=== PATIENT | female | born 1995 | race Caucasian/White ===

== ENCOUNTER → 2022-09-15 | Outpatient (CLI) | payer OTHER, SELFPAY ==
[2022-09-17 00:07] LABS: Chlamydia By Nucleic Acid AMP Negative (Negative)
[2022-09-17 12:22] LABS: Gonococcus By Nucleic Acid AMP Negative (Negative)
== END | disposition home or self-care (01) ==
LOC: LABSPEC 10:55
PROVIDERS: Visit Provider Obstetrics & Gynecology
DX: Z34.90 Encounter for supervision of normal pregnancy, unspecified, unspecified trimester (principal)
CPT/HCPCS: 87086; 87491; 87591

== ENCOUNTER → 2022-09-26 | Outpatient (CLI) | payer OTHER, SELFPAY ==
[2022-09-26 11:17] LABS: Absolute Lymphocyte Count 1.24 X10^3/uL (0.83-4.51); Absolute Neutrophil Count 5.5 X10^3/uL (2.0-7.7); Basophil# 0.04 X10^3/uL; Basophil% 0.5 % (0-1); Eosinophil# 0.05 X10^3/uL; Eosinophils% 0.7 % (0-5); Hematocrit 39.1 % (37-47); Hemoglobin 13.4 g/dL (12.0-15.0); Lymphocyte # 1.24 X10^3/ul (0.83-4.51); Lymphocyte % 16.8 % (19-41); Mean Corp Hgb Conc 34.3 g/dL (32-36); Mean Corpuscular Hgb 29.4 pg (27.0-32.0); Mean Corpuscular Volume 85.7 fL (81-99); Mean Platelet Vol. 9.2 fl (6.2-12.0); Monocyte# 0.55 X10^3/uL; Monocyte% 7.5 % (0-10); NRBC Flagged by Analyzer 0 % (0-5); Neutrophil # 5.47 X10^3/uL (2.7-7.7); Neutrophil % 74.2 % (47-70); Platelet Count 198 K/mm3 (150-450); RBC Distribution Width CV 12.2 % (11.6-14.6); RBC Distribution Width SD 37.9 fl (35.1-43.9); Red Blood Count 4.56 M/mm3 (4.2-5.4); White Blood Count 7.4 K/mm3 (4.4-11.0)
[2022-09-26 12:10] LABS: NATERA MAILED SPECIMEN
[2022-09-26 12:40] LABS: HIV - WCH Non-Reactive (Nonreactive); Hepatitis B Surface Antigen Non-Reactive (Nonreactive); Hepatitis C Antibody Non-Reactive (Nonreactive); Rubella IgG Reactive (Nonreactive); Syphilis Antibodies Non-reactive
== END | disposition home or self-care (01) ==
LOC: PAVLAB 10:56
PROVIDERS: Referring Provider Obstetrics & Gynecology; Visit Provider Obstetrics & Gynecology
DX: Z34.90 Encounter for supervision of normal pregnancy, unspecified, unspecified trimester (principal)
CPT/HCPCS: 36415; 85025; 86703; 86762; 86780; 86803; 86850; 86900; 86901; 87340

== ENCOUNTER → 2022-10-19 | Outpatient (CLI) | payer OTHER, SELFPAY ==
[2022-10-19 13:54] VITALS: BP 116/78; PULSE 97; RESP 16; TEMP 36.4; O2SAT 100; BMI 20.5
[2022-10-19] MEDS: Ondansetron 4 MG/2 ML Vial IV (14:02)
[2022-10-19] MEDS: Dextrose 5%-Lactated Ringers 1,000 ML 999 ML IV (14:02)
[2022-10-19] MEDS: 0.9% NaCl Peripheral Flush Adult/Peds IV (14:02)
[2022-10-19 15:22] VITALS: BP 110/69; PULSE 96; RESP 16; TEMP 37.5; O2SAT 100
== END | disposition home or self-care (01) ==
PROVIDERS: Referring Provider Nurse Practitioner Women's Health; Visit Provider Nurse Practitioner Women's Health
DX: E86.0 Dehydration (principal)
CPT/HCPCS: 96374; 96361; A4216; J2405

== ENCOUNTER → 2023-01-11 | Outpatient (CLI) | payer OTHER, SELFPAY ==
[2023-01-11 11:42] LABS: Absolute Lymphocyte Count 1.18 X10^3/uL (0.83-4.51); Absolute Neutrophil Count 5.3 X10^3/uL (2.0-7.7); Basophil# 0.03 X10^3/uL; Basophil% 0.4 % (0-1); Eosinophil# 0.05 X10^3/uL; Eosinophils% 0.7 % (0-5); Hematocrit 35.3 % (37-47); Hemoglobin 12.1 g/dL (12.0-15.0); Lymphocyte # 1.18 X10^3/ul (0.83-4.51); Lymphocyte % 16.5 % (19-41); Mean Corp Hgb Conc 34.3 g/dL (32-36); Mean Corpuscular Hgb 30.6 pg (27.0-32.0); Mean Corpuscular Volume 89.4 fL (81-99); Mean Platelet Vol. 9.7 fl (6.2-12.0); Monocyte# 0.53 X10^3/uL; Monocyte% 7.4 % (0-10); NRBC Flagged by Analyzer 0 % (0-5); Neutrophil # 5.31 X10^3/uL (2.7-7.7); Neutrophil % 74.6 % (47-70); Platelet Count 193 K/mm3 (150-450); RBC Distribution Width SD 42.5 fl (35.1-43.9); Red Blood Count 3.95 M/mm3 (4.2-5.4); White Blood Count 7.1 K/mm3 (4.4-11.0)
[2023-01-11 12:16] LABS: Glucose Challenge Gest 1H 50g 82 mg/dL (70-140)
[2023-01-11 12:47] LABS: HIV - WCH Non-Reactive (Nonreactive); Syphilis Antibodies Non-reactive
== END | disposition home or self-care (01) ==
PROVIDERS: Referring Provider Registered Nurse; Visit Provider Registered Nurse
DX: O09.90 Supervision of high risk pregnancy, unspecified, unspecified trimester (principal); Z13.1 Encounter for screening for diabetes mellitus
CPT/HCPCS: 36415; 82950; 85025; 86703; 86780

== ENCOUNTER 2023-04-23 12:57 | Inpatient (IN) | payer OTHER, MEDICAID, SELFPAY ==
[2023-04-23] VITALS (15 sets, daily range): BP systolic 111–137; BP diastolic 66–90; PULSE 81–97; RESP 16–18; TEMP 36.2–37.2; O2SAT 100; BMI 26.3
[2023-04-23] MEDS: Lactated Ringers 1,000 ML 999 ML IV (15:13)
[2023-04-23 15:20] LABS: Absolute Lymphocyte Count 1.22 X10^3/uL (0.83-4.51); Absolute Neutrophil Count 6.4 X10^3/uL (2.0-7.7); Basophil# 0.02 X10^3/uL; Basophil% 0.2 % (0-1); Hematocrit 35.7 % (37-47); Hemoglobin 11.5 g/dL (12.0-15.0); Lymphocyte # 1.22 X10^3/ul (0.83-4.51); Mean Corp Hgb Conc 32.2 g/dL (32-36); Mean Corpuscular Hgb 26.7 pg (27.0-32.0); Mean Platelet Vol. 11.1 fl (6.2-12.0); Monocyte# 0.47 X10^3/uL; Monocyte% 5.8 % (0-10); NRBC Flagged by Analyzer 0 % (0-5); Neutrophil % 78.6 % (47-70); POSITIVE COUNT YES; Platelet Count 194 K/mm3 (150-450); RBC Distribution Width CV 13.4 % (11.6-14.6); RBC Distribution Width SD 40.4 fl (35.1-43.9); White Blood Count 8.1 K/mm3 (4.4-11.0)
[2023-04-23 15:31] LABS: Differential Indicated SCAN CRITERIA MET
[2023-04-23] MEDS: Acetaminophen 500 MG Tablet 1000 MG PO ×2 (15:58→21:51)
[2023-04-23] MEDS: Sodium Citrate/Citric Acid 30 ML UDC PO (16:00)
--- NOTE | 2023-04-23 16:01 | HP.PCM.OB_ITS ---
HPI - General General Date of Admission: 04/23/23 HPI Narrative JORDEN JARA, is a 27 F at 40.1 weeks presents complaining of menstrual- like cramping and swelling of the hands. Upon admission blood pressure overall reassuring she did have 1 elevated at 145/95. She denies any headaches or visual changes. Patient was originally scheduled for labor induction at 41 weeks upon discussion with the patient and review of her medical records and assessment last growth ultrasound demonstrated LGA 96 percentile with abdominal circumference >99% and BPD >99%. Patient previously counseled in the office about estimated weight. After discussion with the patient patient would like to proceed with elective primary section. Patient was counseled extensively about risk benefits and alternatives. Patient understands that ultrasound can be off and estimated weight either up or down. She understands that the estimated weight may not be at 5000 g. [facility] Medical History History of HPV infection Hx of abnormal cervical Pap smear Home Medications vit,calcium no.40-iron fum 27 mg iron-folate no.1 1 mg tablet (PNV- Select) 1 tab PO DAILY 09/06/22 [History Last Taken 04/22/23 21:00 1 TAB] ondansetron 4 mg disintegrating tablet 4 mg PO Q4H PRN nausea and vomiting #60 tabs 12/19/22 [Rx Last Taken 04/18/23 09:00 4 mg] diphenhydramine HCl 50 mg/30 mL oral liquid (Sleep Aid (diphenhydramine)) 25 mg PO QHS 04/23/23 [History Last Taken 04/22/23 22:00 25 mg] Allergy/AdvReac Type Severity Reaction Status Date / Time No Known Allergies Allergy Verified 04/23/23 12:19 Surgical History History of loop electrical excision procedure (LEEP) History of tonsillectomy and adenoidectomy Hx of wisdom tooth extraction Social History adopted: No household members: significant other current occupational status: employed 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 current occupational exposures/hazards: No pets and animals: Yes pets and animals: dog(s) history of recent travel: No sexually active: Yes Smoking Status: Never smoker alcohol intake: never substance use type: does not use well-balanced diet: daily or most days caffeine: No eating out: rarely or never during the past year weight has: remained stable what type of physical activity do you participate in: none arcenio/baptist: [employer] seatbelt use: always do you feel safe at home: Yes additional social history: BF - Dennis History 1 Elective abortions Hx Para 0 Spontaneous abortions Hx # Term Pregnancies Ectopic pregnancies Hx # Pregnancies Multiple births # of living children Addt'l History: non specific findings on NIPT regarding x chromosome- decision for follow up after delivery. NST FHR Rate Baby A Baseline: 140 Variability:: Moderate Accelerations:: 15 x 15 Decelerations:: None NST Reactive:: Yes FHR Category:: Category I Uterine Activity:: irregular ctx Vital Signs Vital Signs Vital Signs: 04/23/23 12:13 04/23/23 12:13 04/23/23 15:16 Temperature 98.2 F Temperature Source Temporal Pulse Rate Respiratory Rate Blood Pressure 137/87 H Blood Pressure Mean BP Systolic 137 BP Diastolic 87 Blood Pressure Source Blood Pressure Position Blood Pressure Location Pulse Ox Oxygen Delivery Method 04/23/23 15:16 04/23/23 15:14 Temperature 98.9 F Temperature Source Tympanic Pulse Rate 86 86 Respiratory Rate 16 Blood Pressure 137/87 H Blood Pressure Mean 103 BP Systolic BP Diastolic Blood Pressure Source Monitor Blood Pressure Position Semi-Fowlers Blood Pressure Location Right Arm Pulse Ox 100 Oxygen Delivery Method Room Air Weight Weight: 78.471 kg Body Mass Index (BMI) 26.3 Physical Exam Narrative /-3 Const alert and oriented x3 General Appearance: cooperative HEENT normocephalic GI GI Narrative: Gravid, non tender to palpation. OB / External & Speculum: external exam normal Extremity normal to inspection Skin no rashes or lesions noted Neuro oriented x3 and CN's II-XII intact bilaterally Psych Appearance: grossly normal Labs Labs Labs: Blood Type A POSITIVE Antibody Screen NEGATIVE Hct 35.7 % (37-47) L Hgb 11.5 g/dL (12.0-15.0) L Syphilis Total Ab Non-reactive Rubella IgG Antibody Reactive (Nonreactive) Hep Bs Antigen Non-Reactive (Nonreactive) Chlamydia DNA (MICHAEL) Negative (Negative) Neisseria gonorrhoeae DNA (MICHAEL) Negative (Negative) HIV 1&2 Antibody Non-Reactive (Nonreactive) Glucose 1 Hr 50 gm 82 mg/dL (70-140) Assessment & Plan (1) Abnormal chromosomal and genetic finding on screening mother: COMMENT: may be mosaic. normal ultrasound for NT- plan for microarry analysis at - 3cc in green top (sodium heparin) and 3cc purple top (EDTA) for cytogenic microanalysis of blood (MCRY1) to [facility]. Q4 week growth scan echo-normal testing starting 36 weeks (?) MFM not clear. (2) Supervision of high-risk : COMMENT: [id number] NICK 04/22/23, LEE Collins (3) 40 weeks gestation of : (4) LGA (large for gestational age) fetus affecting management of mother: PLAN: Plan Admit to L&D Montior FHR/TOCO Monitor VS Patient counseled on proceeding with induction of labor versus elective primary section. After risk benefits and alternatives were discussed with the patient and her they decided to proceed with an elective primary section. N.p.o. status at 3 PM. Discussion with staffing and charge nurse we can accommodate this today. We will proceed with elective primary section today. Ancef 2 g. Anesthesia aware
[2023-04-23 16:15] LABS: Differential Comment SCANNED
[2023-04-23] MEDS: Cefazolin 2 GM in 0.9% Normal Saline 100 ML IV (16:15)
--- NOTE | 2023-04-23 17:02 | OP.PCM_ITS ---
Details Operative Information Date of Procedure: 04/23/23 Pre-Operative Diagnosis: 40.1 weeks gestation, LGA, Elective primary cs, Abnormal chromosomal finding on screening of mother Post-Operative Diagnosis: same, live male Classification: Scheduled Procedure Type: low transverse claims administrator #1: Kerry Chan claims administrator #2: Rupert Lutz Type of Anesthesia: Spinal Antibiotic Given: Ancef 2 grams IV x1 Drain: Erazo to straight drain Estimated Blood Loss: 700 Fluids Replaced: 750 Procedure Start Time: 16:35 Procedure Stop Time: 17:08 Time of Delivery: 16:39 Findings Description of Procedure: After informed consent was obtained the patient was taken the operating room she was given spinal anesthesia. She was then placed in the supine position. She was prepped and draped in the normal sterile fashion. Anesthesia was found to be adequate. At this time a Pfannenstiel skin incision was made with a knife was carried down to the underlying layer of the fascia. The fascial incision was then extended laterally using gentle traction, Attention was then turned to the superior aspect of the fascial edge was grasped with 2 straight Stella clamps tented up and the rectus muscle dissected off bluntly. Rectus muscles were then in the midline bluntly and peritoneum was entered bluntly. Gentle opposing traction was placed. At this time the vesicouterine peritoneum was identified. Scalpel was used to make a uterine incision in a low transverse fashion. The uterus was then entered bluntly gentle opposing traction was placed to extend this incision. Membranes were ruptured gabriella- copious amount of fluid. Infant's head was brought to the uterine incision was delivered atraumatically. 2 loose nuchals were reduced. Rest of infant was delivered without complication. delayed cord clamping- Cord was clamped and cut infant was handed to the waiting nursery team. The Placenta was removed from the uterus. The uterus was then removed from the abdominal cavity. The uterus was cleared of all clots and debris using a lap. At this time the uterine incision was re approximated using #1 Vicryl in a running locked fashion. Hemostasis was appreciated. Posterior cul-de-sac was then cleared of all clots and debris. Uterus was placed back in the abdominal cavity. Gutters were cleared of all clots and debris. Uterine incision was reevaluated and noted to be of excellent hemostasis. Nancy placed over uteirne incision. At this time the peritoneum was grasped with Kellys reapproximated using #2 Vicryl suture in a running fashion. Nancy placed over rectus. Fascia was then reapproximated using #1 Vicryl in a running fashion. Subcu layer was irrigated with normal saline and then nancy placed and then it was reapproximated with #2 0 plain gut suture in an interrupted fashion. Subcu layer was closed using 4-0 Monocryl in a subcu fashion. Dry sterile dressing was applied. Instrument lap needle count correct ?2. Anticipated normal postoperative course. Presentation: Positive for Vertex Amniotic Membrane Rupture Type: Artificial Amniotic Fluid Description: Clear Placental Delivery Description: Manual Removal Placenta Disposition: [facility] Cord Vessel Description: 3 Vessels Cord Entanglement: Around neck x 2, loose Nuchal Cord Compression: Without compression A Gender: Male (1 minute): 8 (5 minute): 9 Delayed Cord Clamping: Yes Complications Risks of Surgery Discussed w/Patient: Anesthesia Risks, Infection and Injury to surrounding structure(s) including bowel and bladder Complications: none Admit VTE Documentation VTE Present on Admission: Yes VTE Mechan Device Prophylaxis: SCD's VTE Pharm Prophylaxis Ordered: No Reason Prophylaxis Not Ordered: Procedure Not Indicated
[2023-04-23] MEDS: Oxytocin 15 Units/NS 250ml 15 UNITS/250 ML IV.SOLN 83 UNITS IV (17:25)
[2023-04-23] MEDS: Ketorolac 30 MG/ML Syringe IV (17:37)
[2023-04-23] MEDS: Lactated Ringers 1,000 ML 100 ML IV (21:17)
[2023-04-23] MEDS: Ondansetron 4 MG/2 ML Vial IV (21:36)
--- NOTE | 2023-04-24 00:38 | NURSING ---
pt stood at side of bed and tolerated well.
[2023-04-24] MEDS: LACTATED RINGERS 500 ML 999 ML IV (00:52)
[2023-04-24] MEDS: Lactated Ringers 1,000 ML 100 ML IV (01:37)
[2023-04-24 01:38] VITALS: BP 118/76; PULSE 83; RESP 16; TEMP 36.9; O2SAT 100
[2023-04-24 04:30] VITALS: BP 115/61; PULSE 82; RESP 18; TEMP 36.8; O2SAT 100
[2023-04-24] MEDS: Acetaminophen 500 MG Tablet 1000 MG PO ×4 (04:32→23:03)
[2023-04-24] MEDS: Ketorolac 30 MG/ML Syringe IV ×2 (05:24→11:25)
[2023-04-24] MEDS: 0.9% Saline Lock 10 ML Syringe IV ×2 (05:25→11:26)
[2023-04-24 05:45] LABS: Hematocrit 25.5 % (37-47); Hemoglobin 8.2 g/dL (12.0-15.0); Mean Corp Hgb Conc 32.2 g/dL (32-36); Mean Corpuscular Volume 83.9 fL (81-99); Mean Platelet Vol. 9.9 fl (6.2-12.0); Platelet Count 171 K/mm3 (150-450); RBC Distribution Width CV 13.4 % (11.6-14.6); RBC Distribution Width SD 40.9 fl (35.1-43.9); Red Blood Count 3.04 M/mm3 (4.2-5.4)
--- NOTE | 2023-04-24 07:52 | PCM.PROGNOTE ---
Subjective Subjective patient seen at bedside, doing well. Patient reports good pain control. lochia mild. denies CP, sob, dizziness. Objective Data Objective Data Vital Signs: Vital Signs Temp Pulse Resp BP Pulse Ox O2 Del Method 98.3 F 82 18 115/61 100 Room Air 04/24/23 04:30 04/24/23 04:30 04/24/23 04:30 04/24/23 04:30 04/24/23 04:30 04/24/23 04:30 Oxygen Delivery Method Room Air Weight: 78.471 kg Body Mass Index (BMI) 26.3 Intake & Output: Intake and Output for Last 24 Hours 04/22/23 04/23/23 04/24/23 23:59 23:59 23:59 Intake Total 1360 / 1360 1166.67 / 1166.67 Output Total 1050 / 1100 650 / 650 Balance 310 / 260 516.67 / 516.67 Lab / Micro Data 04/24/23 05:34 Labs: Laboratory Results - last 24 hr 04/23/23 15:05: WBC 8.1, RBC 4.30, Hgb 11.5 L, Hct 35.7 L, MCV 83.0, MCH 26.7 L, MCHC 32.2, RDW Std Deviation 40.4, RDW Coeff of Jayant 13.4, Plt Count 194, MPV 11.1, Immature Gran % (Auto) 0.400, Neut % (Auto) 78.6 H, Lymph % (Auto) 15.0 L, Saline % (Auto) 5.8, Eos % (Auto) 0.0, Baso % (Auto) 0.2, Absolute Neuts (auto) 6.4, Absolute Lymphs (auto) 1.22, Nucleated RBC % 0, Differential Comment SCANNED, Blood Type A POSITIVE, Antibody Screen NEGATIVE 04/24/23 05:34: WBC 7.0, RBC 3.04 L, Hgb 8.2 L, Hct 25.5 L, MCV 83.9, MCH 27.0, MCHC 32.2, RDW Std Deviation 40.9, RDW Coeff of Jayant 13.4, Plt Count 171, MPV 9.9 Physical Exam Narrative abd: fundus firm. Dressing- has area of marked old blood, otherwise dry. Const alert and oriented x3 General Appearance: cooperative HEENT normocephalic Neck General: normal visual inspection GI soft to palpation and non-distended GI Narrative: Fundus firm Extremity normal to inspection and no calf tenderness Skin no rashes or lesions noted Neuro oriented x3 and CN's II-XII intact bilaterally Psych mental status grossly normal Assessment & Plan Assessment/Plan (1) Delivery by section: (2) Acute blood loss anemia: PLAN: Plan POD# 1 , Doing well Routine care pain mgmt monitor VS ambulation start po iron voiding trial
[2023-04-24] MEDS: Senna/Docusate Sodium 1 Tablet PO (10:56)
[2023-04-24 14:12] VITALS: BP 122/80; PULSE 79; RESP 16; TEMP 36.8; O2SAT 98
[2023-04-24] MEDS: Ferrous Sulfate 325 MG Tablet PO (18:06)
[2023-04-24 19:45] VITALS: BP 128/74; PULSE 85; RESP 15; TEMP 36.8; O2SAT 100
[2023-04-24] MEDS: Ibuprofen 600 MG Tablet PO (19:58)
[2023-04-25] MEDS: Ibuprofen 600 MG Tablet PO ×2 (02:17→08:43)
[2023-04-25 02:25] VITALS: BP 128/77; PULSE 83; RESP 16; TEMP 36.6; O2SAT 99
[2023-04-25] MEDS: Acetaminophen 500 MG Tablet 1000 MG PO ×2 (05:16→11:12)
[2023-04-25 08:02] VITALS: BP 122/77; PULSE 86; RESP 16; TEMP 36.4; O2SAT 99
--- NOTE | 2023-04-25 08:18 | PCM.PN.OB ---
Subjective Subjective Pain controlled Objective Data Objective Data Vital Signs: Vital Signs Temp Pulse Resp BP Pulse Ox O2 Del Method 97.6 F L 86 16 122/77 H 99 Room Air 04/25/23 08:02 04/25/23 08:02 04/25/23 08:02 04/25/23 08:02 04/25/23 08:02 04/25/23 08:02 Oxygen Delivery Method Room Air Weight: 173 lb Body Mass Index (BMI) 26.3 Intake & Output: Intake and Output for Last 24 Hours 04/23/23 04/24/23 04/25/23 23:59 23:59 23:59 Intake Total 1360 / 1360 1166.67 / 1166.67 Output Total 1050 / 1100 1450 / 1450 Balance 310 / 260 -283.33 / -283.33 Lab / Micro Data 04/24/23 05:34 Physical Exam Const alert, oriented x3 and no apparent distress HEENT normocephalic GI soft to palpation, non-tender and non-distended GI Narrative: fundus firm, mid & below umbilicus Incision - bandage stable area of dried blood/d/i Extremity normal to inspection and no calf tenderness Assessment & Plan (1) Delivery by section: COMMENT: POD#2 PLAN: Plan D/c home
--- NOTE | 2023-04-25 08:27 | DCINST_ITS ---
Discharge Instructions Diet Discharge Diet: No restrictions Activity Discharge Activity: May Shower May resume sexual activity in: 6 weeks Weight Bearing Status: Weight bearing as tolerated Dressing / Incision Call your doctor if your incision/area has: Continuous Slow Oozing, Sudden Increased Bleeding, Increased Pain/ Swelling, Increased Redness, Foul Smelling Discharge and Swelling at the incision site Call your doctor if you observe: Fever of 101 or Higher, Coldness, Increased Pain, Change in Color, Inability to urinate, Inability to have a bowel movement, Using more than 1 pad per hour, Shortness of breath, Dizziness, Fainting spells, Chest pain, Increased palpitations (irregular heartbeat), Calf discomfort and Uncontrolled pain Suture Line Care: Avoid Pulling/Pushing and Avoid Pinching/Bending Remove Dressing in: 1 week Cleanse incision/area with: Soap & Water Follow Up Care Please Follow Up With: Jane Kruse MD When: Follow up in 2 and 6 weeks for visits. Test Results: Test results from this visit will be discussed in further detail at your follow- up appointment, if applicable. Discharge Plan Admission Admit Date/Time: 04/23/23 12:57 Primary Reason for Your Visit: section Attending Provider: Jane Kruse Primary Care Provider: Care PhysicianTamar Primary Discharge Orders/Prescriptions Prescriptions: New acetaminophen 500 mg Tablet 1,000 mg PO Q6H Qty: 0 0RF ibuprofen 600 mg Tablet 600 mg PO Q6H Qty: 0 0RF Slow Fe 142 mg (45 mg iron) tablet extended release 142 mg PO DAILY Qty: 30 2RF Continued PNV-Select 27-1 mg tablet 1 tab PO DAILY Discontinued Sleep Aid (diphenhydramine) 50 mg/30 mL liquid 25 mg PO QHS ondansetron 4 mg tablet,disintegrating 4 mg PO Q4H PRN (Reason: nausea and vomiting) Qty: 60 2RF Referrals / Follow Up: Care PhysicianTamar Primary [Primary Care Provider] - Disposition Disposition (needs filled in before D/C Order can be placed): Home, Self Care
[2023-04-25] MEDS: Senna/Docusate Sodium 1 Tablet PO (08:43)
--- NOTE | 2023-04-25 09:50 | NURSING ---
Reviewed and agree with student charting. Chloé HERNANDEZ [employer] instructor
[2023-04-25] MEDS: Ferrous Sulfate 325 MG Tablet PO (11:14)
[2023-04-25 14:49] LABS: Syphilis Antibodies Non-reactive
== END 2023-04-25 12:40 | disposition home or self-care (01) | DRG 787 ==
LOC: WP 13:05
PROVIDERS: Admitting Provider Obstetrics & Gynecology; Visit Provider Obstetrics & Gynecology
DX: O36.63X0 Maternal care for excessive fetal growth, third trimester, not applicable or unspecified (principal); D62 Acute posthemorrhagic anemia; O69.2XX0 Labor and delivery complicated by other cord entanglement, with compression, not applicable or unspecified; Z37.0 Single live birth; Z3A.40 40 weeks gestation of pregnancy; O99.03 Anemia complicating the puerperium
CPT/HCPCS: 59050; 85025; 85027; 86780; 86850; 86900; 86901; 99221; J7120; A4216; G0378; J2405